=== PATIENT | male | born 1990 | race Caucasian/White ===

== ENCOUNTER 2019-06-05 23:54 | Emergency (ER) | payer OTHER ==
[~2019-06-05] VITALS: Ht 180.3 cm; Wt 151.6 kg
[~2019-06-05 23:54] MED LIST: HYDROCODON-ACE1 EAC7 PO; HYDROCODONE-AP1 EAC6 PO
[2019-06-06 00:39] LABS: ABSOLUTE BASOPHILS 0.1 thou/uL (0.0-0.2); ABSOLUTE EOSINOPHILS 0.2 thou/uL (0.0-0.7); ABSOLUTE LYMPHOCYTES 3.7 thou/uL (0.8-5.3); ABSOLUTE MONOCYTES 0.8 thou/uL (0.0-1.2); ABSOLUTE NEUTROPHILS 9.5 thou/uL (1.6-8.1); BASOPHILS 0.4 %; EOSINOPHILS 1.4 %; HEMOGLOBIN 14.5 gm/dL (14.0-18.0); LYMPHOCYTES 25.8 %; MCH 27.7 pg (26.0-34.0); MCHC 34.6 g/dL (28.0-37.0); MONOCYTES 5.6 %; MPV 7.6 fl. (7.2-11.1); NUCLEATED RBCS 0 /100WBC; PLATELET COUNT* 304 thou/uL (150-400); POLYS 66.8 %; RBC 5.25 mil/uL (4.50-6.00); RDW-CV 13.8 % (10.5-14.5); WBC 14.3 thou/uL (4.0-11.0)
[2019-06-06 00:46] LABS: PROTIME 10.5 Seconds (9.20-11.50)
[2019-06-06 01:01] LABS: ANION GAP 10 mmol/L (7-16); BUN 13 mg/dL (7-18); CALCIUM 9.4 mg/dL (8.5-10.1); CHLORIDE 99 mmol/L (98-107); CO2 28 mmol/L (21-32); CREATININE 1.3 mg/dL (0.6-1.3); GLUCOSE 154 mg/dL (70-99); POTASSIUM 3.7 mmol/L (3.5-5.1); SODIUM 137 mmol/L (136-145)
[2019-06-06 01:11] LABS: ALBUMIN 3.8 g/dL (3.4-5.0); ALKALINE PHOSPHATASE 182 U/L (46-116); LIPASE 111 U/L (73-393); NT-PRO BRAIN NAT PEPTIDE 30 pg/mL (<300); SGPT 80 U/L (30-65); TOTAL BILIRUBIN 0.4 mg/dL (<0.1-1.0); TOTAL PROTEIN 7.9 g/dL (6.4-8.2); TROPONIN-I LEVEL <0.06 ng/mL (<0.06)
[2019-06-06 01:23] LABS: SGOT 30 U/L (15-37)
[2019-06-06 01:27] LABS: AMP/METHAMP Negative (Negative); BARBITURATES Negative (Negative); BENZODIAZEPINES Negative (Negative); COCAINE Negative (Negative); METHADONE Negative (Negative); OPIATES Negative (Negative); PCP Negative (Negative); THC Negative (Negative)
[2019-06-06 01:49] VITALS: BP 126/64
--- NOTE | 2019-06-06 12:24 | EKG ---
[place] [address] ELECTROCARDIOGRAM REPORT Name: SHAGUFTA WOODY Room: [facility]#: [id number] Admission: 06/05/19 Attend Phys: Discharge: 06/06/19 Date of : [birth year] Report #: [id number] THIS REPORT FOR: //name// [facility] ED Test Date: 2019-06-06 Test Time: 00:00:59 Pat Name: SHAGUFTA WOODY Department: Room: Gender: M Television Presenter: ZAINAB : 1990 Requested By: Jacqueline Suggs Order Number: [id number] MD: Moody Barbour Measurements Intervals [place] Rate: 84 P: 40 [place]: 168 QRS: -10 QRSD: 108 T: 35 QT: 350 QTc: 414 Interpretive Statements Sinus rhythm Low voltage, precordial leads RSR' in V1 or V2, right VCD or RVH Baseline wander in lead(s) I,II,III,aVR,aVL,aVF,V1,V2,V4,V5,V6 No previous ECG available for comparison Electronically Signed On 06-06-2019 12:24:09 CDT by Moody Barbour [email or web address] <ELECTRONICALLY SIGNED> By: Lyubov Barbour MD, [facility] 06/06/19 1224 0000 0000 Lyubov Barbour MD, [facility] /EPI
== END 2019-06-06 01:49 | disposition home or self-care (01) ==
LOC: M.ERS 23:54
PROVIDERS: Emergency Medicine
DX: R07.2 Precordial pain (principal); R10.13 Epigastric pain; R10.11 Right upper quadrant pain